=== PATIENT | female | born 1995 | race American Indian/Alaskan Native ===

== ENCOUNTER 2016-05-20 23:11 | Emergency (ER) | payer MEDICAID ==
--- NOTE | 2016-05-21 05:25 | Emergency Department Report ---
HPI - General Chief Complaint: Sore Throat Time Seen by Provider: 05/21/16 05:19 - HPI HPI: 20-year-old female presents today with sore throat 2 days. Denies cough or congestion. Denies sick contacts. Positive for subjective fever. Denies nausea, vomiting, chest pain, shortness of breath, abdominal pain. Patient states that she tried amoxicillin and ibuprofen with temporary relief. She states her father gave her 1 pill of amoxicillin she does not have anymore. ED Past Medical Hx - Past Medical History Previous Medical History?: No - Surgical History Past Surgical History?: No - Social History Smoking Status: Never Smoker Substance Use Type: None - Medications Home Medications: Home Medications Medication Instructions Recorded Confirmed Last Taken Type Amoxicillin [Amoxicillin TAB] 875 mg PO BID #20 tablet 05/21/16 Unknown Rx Lidocaine Viscous 2% 15 ml MM TID #100 ml 05/21/16 Unknown Rx ED Review of Systems ROS: Stated complaint: FEVER/THROAT PAIN Other details as noted in HPI Constitutional: chills, fever. denies: malaise Eyes: denies: eye pain ENT: throat pain. denies: ear pain, congestion Respiratory: denies: cough, shortness of breath, wheezing Cardiovascular: denies: chest pain, palpitations Endocrine: no symptoms reported Gastrointestinal: denies: abdominal pain, nausea, vomiting Skin: denies: rash Neurological: denies: headache, weakness Physical Exam - Physical Exam Vital Signs: Vital Signs 05/21/16 00:15 Temperature 98.4 F Pulse Rate 100 H Respiratory 18 Rate Blood Pressure 114/65 O2 Sat by Pulse 100 Oximetry Physical Exam: GENERAL: The patient is well-developed and well-nourished. Patient is in NAD. HEAD: Normocephalic. Atraumatic. EYES: PERRL. EARS: External auditory canals and tympanic membranes clear; hearing grossly intact. NOSE: Normal nasal mucosa with no nasal discharge. THROAT: Positive for erythema, tonsillomegaly with tonsillar exudates. NECK: Stiff and right-sided anterior cervical lymphadenopathy. CHEST/LUNGS: Clear to auscultation throughout. HEART/CARDIOVASCULAR: Regular rate and rhythm. No murmurs, rubs or gallops. ABDOMEN: Abdomen is soft, nontender. No guarding or rebound tenderness. EXTREMITIES: Peripheral pulses intact. Capillary refill less than 2 seconds. NEURO: Alert and oriented x 3. Normal gait. ED Course Vital Signs 05/21/16 00:15 Temperature 98.4 F Pulse Rate 100 H Respiratory 18 Rate Blood Pressure 114/65 O2 Sat by Pulse 100 Oximetry ED Medical Decision Making - Lab Data Vital Signs 05/21/16 00:15 Temperature 98.4 F Pulse Rate 100 H Respiratory 18 Rate Blood Pressure 114/65 O2 Sat by Pulse 100 Oximetry - Medical Decision Making 20-year-old female presents today with sore throat 2 days. Patient is positive for tonsillar exudates, anterior cervical lymphadenopathy, no cough, fever. Patient is in no acute distress at this time. She will be discharged home and is encouraged to follow up with a primary care provider. He will be sent home on amoxicillin and viscous lidocaine and is encouraged to return to the emergency room for any worsening symptoms. Critical care attestation.: If time is entered above; I have spent that time in minutes in the direct care of this critically ill patient, excluding procedure time. ED Disposition Clinical Impression: Pharyngitis Qualifiers: Pharyngitis/tonsillitis etiology: unspecified etiology Qualified Code(s): J02.9 - Acute pharyngitis, unspecified Disposition: DISCHARGED TO HOME OR SELFCARE Is pt being admited?: No Does the pt Need Aspirin: No Condition: Stable Instructions: Pharyngitis (ED), Strep Throat (ED) Additional Instructions: Follow-up with primary care provider. Return to the emergency department if symptoms worsen. Prescriptions: Amoxicillin [Amoxicillin TAB] 875 mg PO BID #20 tablet Lidocaine Viscous 2% 15 ml MM TID #100 ml Referrals: PRIMARY CARE [Primary Care Provider] - 3-5 Days [facility] [Outside] - 3-5 Days Forms: Work/School Release Form(ED) Time of Disposition: 05:23
[2016-05-21 06:35] VITALS: BP 101/67
== END 2016-05-21 06:30 | disposition home or self-care (01) ==
LOC: ED 23:11
DX: J02.9 Acute pharyngitis, unspecified (principal)
CPT/HCPCS: 99282

== ENCOUNTER 2017-05-02 19:03 | Emergency (ER) | payer OTHER ==
[2017-05-02 22:35] LABS: HCG Qualitative,Urine Negative (Negative)
[2017-05-02 23:12] LABS: Basophils % (Auto) 0.4 % (0.0-1.8); Eosinophils % (Auto) 0.2 % (0.0-4.3); Hematocrit 39.8 % (30.3-42.9); Hemoglobin 12.9 gm/dl (10.1-14.3); Lymphocytes # (Auto) 2.1 K/mm3 (1.2-5.4); Lymphocytes % (Auto) 38.4 % (13.4-35.0); Mean Corpuscular HGB Conc 33 % (30-34); Mean Corpuscular Hemoglobin 27 pg (28-32); Mean Corpuscular Volume 84 fl (79-97); Monocytes # (Auto) 0.5 K/mm3 (0.0-0.8); Monocytes % (Auto) 10.1 % (0.0-7.3); Platelet Count 220 K/mm3 (140-440); Red Blood Count 4.71 M/mm3 (3.65-5.03); Red Cell Distribution Width 14.5 % (13.2-15.2)
[2017-05-02 23:32] LABS: BUN/Creatinine Ratio 10; Blood Urea Nitrogen 8 mg/dL (7-17); Calcium 8.8 mg/dL (8.4-10.2); Hemolysis Index 12
[2017-05-03] MEDS ORDERED: K-DUR PO ONE ×2 (01:46→04:05)
--- NOTE | 2017-05-03 01:46 | Emergency Department Report ---
Minor Respiratory - HPI Chief Complaint: Pain General Stated Complaint: FLU Time Seen by Provider: 05/03/17 01:36 Duration: 1 week Pain Location: Throat, Other (body ache 12/22) Severity: severe Minor Respiratory: Yes Rhinorrhea (nasal congestion), Yes Sore Throat, Yes Able to Tolerate Fluids, Yes Cough (denies shortness of breath), Yes Fever (on-and- off), No Ear Pain, No Hemoptysis, No Chest Pain, No Shortness of Breath Other History: Patient reports that she has been having decreased appetite, nasal congestion and runny nose and this has been going on for over a week. For body aches. [id number] cough and cold without any relief. She says she is coughing and has fever. Denies any nausea or vomiting. Denies any abdominal or back pain. ED Review of Systems ROS: Stated complaint: FLU Other details as noted in HPI Comment: All other systems reviewed and negative Constitutional: no symptoms reported Eyes: denies: eye pain, eye discharge ENT: throat pain, congestion. denies: ear pain, dental pain Respiratory: cough. denies: orthopnea, shortness of breath, SOB with exertion, SOB at rest, stridor, wheezing Cardiovascular: denies: chest pain, palpitations, dyspnea on exertion, edema, syncope, paroxysmal nocturnal dyspnea Gastrointestinal: denies: abdominal pain, nausea, vomiting, diarrhea, constipation, hematemesis, melena, hematochezia Musculoskeletal: myalgia. denies: back pain, joint swelling, arthralgia Skin: denies: rash Neurological: denies: headache, weakness, numbness, paresthesias, abnormal gait ED Past Medical Hx - Past Medical History Previous Medical History?: Yes - Surgical History Past Surgical History?: No - Family History Family history: no significant - Social History Smoking Status: Never Smoker Substance Use Type: None - Medications Home Medications: Home Medications Medication Instructions Recorded Confirmed Last Taken Type Amoxicillin [Amoxicillin TAB] 875 mg PO BID #20 tablet 05/21/16 Unknown Rx Lidocaine Viscous 2% 15 ml MM TID #100 ml 05/21/16 Unknown Rx Ondansetron [Zofran Odt] 4 mg PO Q6H PRN #7 tab.rapdis 06/16/16 Unknown Rx Amoxicillin/Potassium Clav 1 each PO Q12H 10 Days #20 tablet 05/03/17 Unknown Rx [Augmentin 875-125 Tablet] Cetirizine HCl [ZyrTEC] 10 mg PO QAM 14 Days #14 capsule 05/03/17 Unknown Rx Fluticasone [Flonase] 1 spray NS QDAY 14 Days #1 bottle 05/03/17 Unknown Rx Minor Respiratory Exam - Exam General: Vital signs noted. No distress. Alert and acting appropriately. This is a 21-year-old female well-nourished well-developed in no acute distress. HEENT: Yes Moist Mucous Membranes (uvula midline, orally moist 10, no peritonsillar abscess.), Yes Rhinorrhea (nasal congestion and erythema), Yes Frontal Tenderness, No Pharyngeal Erythema, No Pharyngeal Exudates, No Conjuctival Injection, No Maxillary Tenderness Ear: Neither TM Bulge (bilateral TM congested without erythema), Neither TM Erythema, Neither EAC Pain, Neither EAC Discharge Neck: Yes Supple (full range of motion and no C-spine tenderness), No Adenopathy Lungs: Yes Good Air Exchange, Yes Cough (dry cough), No Wheezes, No Ronchi, No Stridor, No Labored Respirations, No Retractions, No Use of Accessory Muscles, No Other Abnormal Lung Sounds Heart: Yes Regular (tachycardic at 115), No Murmur Abdomen: Yes Normal Bowel Sounds, No Tenderness (and tender to palpation in all quadrants, no guarding or rebound tenderness.), No Peritoneal Signs Skin: No Rash, No Edema Neurologic: Alert and oriented, no deficits. Alert and oriented 3, GCS of 15. Normal speech. Normal gait Musculoskeletal: Unremarkable. No clubbing, cyanosis or edema. Positive pulses all extremities and no neurovascular compromise ED Course Vital Signs 05/02/17 20:18 Temperature 98.9 F Pulse Rate 115 H Respiratory 16 Rate Blood Pressure 113/73 [Left] Vital Signs 05/02/17 05/03/17 20:18 04:23 Temperature 98.9 F 100.4 F H Pulse Rate 115 H 109 H Respiratory 16 20 Rate Blood Pressure 113/73 119/66 [Left] O2 Sat by Pulse 99 Oximetry Patient still with elevated heart rate and low grade fever. She does not want to stay to be hydrated because she says she's been here too long. I discussed with her that she will need to make sure that she keeps hydrated, rest and take medication as prescribed. - Reevaluation(s) Reevaluation #1: 05/03/17 03:43 Patient stable throughout ED stay. She was given potassium 40 mEq for potassium is 3.4. She is able to tolerate oral liquids without any difficulties. 05/03/17 03:43 ED Medical Decision Making - Lab Data Result diagrams: 05/02/17 23:05 05/02/17 23:05 Lab Results 05/02/17 05/02/17 05/02/17 Range/Units 22:02 23:05 23:05 WBC 5.4 (4.5-11.0) K/mm3 RBC 4.71 (3.65-5.03) M/mm3 Hgb 12.9 (10.1-14.3) gm/dl Hct 39.8 (30.3-42.9) % MCV 84 (79-97) fl MCH 27 L (28-32) pg MCHC 33 (30-34) % RDW 14.5 (13.2-15.2) % Plt Count 220 (140-440) K/mm3 Lymph % (Auto) 38.4 H (13.4-35.0) % Terrell % (Auto) 10.1 H (0.0-7.3) % Eos % (Auto) 0.2 (0.0-4.3) % Baso % (Auto) 0.4 (0.0-1.8) % Lymph # 2.1 (1.2-5.4) K/mm3 Terrell # 0.5 (0.0-0.8) K/mm3 Eos # 0.0 (0.0-0.4) K/mm3 Baso # 0.0 (0.0-0.1) K/mm3 Seg Neutrophils % 50.9 (40.0-70.0) % Seg Neutrophils # 2.7 (1.8-7.7) K/mm3 Sodium 140 (137-145) mmol/L Potassium 3.4 L (3.6-5.0) mmol/L Chloride 98.2 (98-107) mmol/L Carbon Dioxide 29 (22-30) mmol/L Anion Gap 16 mmol/L BUN 8 (7-17) mg/dL Creatinine 0.8 (0.7-1.2) mg/dL Estimated GFR > 60 ml/min BUN/Creatinine Ratio 10 % Glucose 110 H (65-100) mg/dL Calcium 8.8 (8.4-10.2) mg/dL Urine HCG, Qual Negative (Negative) Influenza A and B- - Medical Decision Making ED course: Patient presents to emergency room report in cough and cold symptoms for over a week with fever on and off. She's been taking [id number] cough and cold without any relief. Patient with upper respiratory tract infection, sinusitis, cough and nasal congestion. Patient heart rate is at 109 from 1:15 and her temp is 100.4. She did not want to stay to be hydrated. She was able to tolerate 3 cups of juices and emergency room. I discussed the patient diagnoses, treatment plan and she voiced understanding. Patient CBC stable, chemistry with potassium of 3.4 and she was repleted with potassium 40 mEq 1 tablet. Negative test. Influenza A and B-. All results was discussed patient and I discussed with her that she needs to follow-up with her primary care physician in 2 days and if she does not have a primary care she needs to follow-up with outside Medical Center. Patient discharged home with prescription for Augmentin, Flonase and Zyrtec. She's been having symptoms for 7 days with report of fever and positive tenderness to sinuses. Critical care attestation.: If time is entered above; I have spent that time in minutes in the direct care of this critically ill patient, excluding procedure time. ED Disposition Clinical Impression: Upper respiratory infection with cough and congestion Sinusitis nasal Qualifiers: Sinusitis location: unspecified location Chronicity: acute Recurrence: not specified as recurrent Qualified Code(s): J01.90 - Acute sinusitis, unspecified Disposition: DC-01 TO HOME OR SELFCARE Is pt being admited?: No Does the pt Need Aspirin: No Condition: Stable Instructions: Sinusitis (ED), Upper Respiratory Infection (ED), Acute Cough (ED ) Additional Instructions: Please follow-up with your primary care physician or some [facility] Take antibiotic as prescribed Zyrtec and Flonase will help to relieve congestion Increase U fluid intake and get some rest Prescriptions: Amoxicillin/Potassium Clav [Augmentin 875-125 Tablet] 1 each PO Q12H 10 Days # 20 tablet Cetirizine HCl [ZyrTEC] 10 mg PO QAM 14 Days #14 capsule Fluticasone [Flonase] 1 spray NS QDAY 14 Days #1 bottle Referrals: [facility] [Outside] - 05/05/17 Forms: Work/School Release Form(ED)
[2017-05-03 04:24] VITALS: BP 119/66
== END 2017-05-03 04:27 | disposition home or self-care (01) ==
LOC: ED 19:03
DX: J01.90 Acute sinusitis, unspecified (principal); J06.9 Acute upper respiratory infection, unspecified
CPT/HCPCS: 36415; 80048; 81025; 85025; 87400; 99283